=== PATIENT | female | born 1985 | race Caucasian/White ===

== ENCOUNTER 2018-04-16 13:00 | Emergency (ER) | payer OTHER, MEDICARE ==
[2018-04-16] MEDS ORDERED: Metoclopramide HCl 10 MG/2 ML VIAL ONE (13:26)
[2018-04-16] MEDS ORDERED: Famotidine/PF 20 mg/2ml Vial ONE (13:26)
[2018-04-16 14:07] LABS: #Basophils 0.1 thou/uL (0.0-0.2); #Eosinphils 0.1 thou/uL (0.0-0.7); #Lymphocytes 1.9 thou/uL (1.20-3.40); #Monocytes 0.7 thou/uL (0.11-0.59); %Basophils 1.3 % (0.0-1.0); %Eosinophils 1.2 % (0.0-10.0); %Lymphocytes 24.1 % (21.0-51.0); %Monocytes 9.1 % (0.0-10.0); %Neutrophils 64.3 % (42.0-75.0); Mean Corpuscular HGB CONC 32.7 g/dL (32.0-36.0); Mean Corpuscular Hemoglobin 28.2 pg (27.0-31.0); Mean Corpuscular Volume 86.3 fL (78.0-98.0); Mean Platelet Volume 7.8 fL (7.4-10.4); Platelet Count 239 thou/uL (130-400); RBC Distribution Width 11.9 % (11.5-14.5); Red Blood Cell (RBC) Count 4.61 mill/uL (4.20-5.40); White Blood Cell (WBC) Count 7.7 thou/uL (4.8-10.8)
[2018-04-16 14:09] LABS: BHCG - Serum Negative (NEGATIVE); Pregs Control Background? CLEAR/WHITE (CLR/WHITE); Pregs Control Bar Appear? YES (CONTROL BAR)
[2018-04-16 14:18] LABS: ALT (SGPT) 8 U/L (8-55); AST (SGOT) 9 U/L (5-34); Albumin 3.8 g/dL (3.5-5.0); Alkaline Phosphatase 66 U/L (40-150); Anion Gap 12 mmol/L (10-20); BUN (Urea Nitrogen) 10 mg/dL (7.0-18.7); Calc. Creatinine Clearance 0 mL/min (70-130); Calcium 8.6 mg/dL (7.8-10.44); Carbon Dioxide 22 mmol/L (22-29); Chloride 111 mmol/L (98-107); Estimated GFR-MDRD Greater than 90; Globulin 2.2 g/dL (2.4-3.5); Glucose 84 mg/dL (70-105); Lipase 24 U/L (8-78); Potassium 3.7 mmol/L (3.5-5.1); Sodium 141 mmol/L (136-145)
[2018-04-16] MEDS ORDERED: Lidocaine Viscous Sol 2% 15 ml UD Cup ONE (15:06)
[2018-04-16] MEDS ORDERED: Mag-Al Plus 1200 MG/1200 MG/120 MG/30 ML UDCUP ONE (15:06)
--- NOTE | 2018-04-16 15:19 | ULT ---
RIGHT UPPER QUADRANT ULTRASOUND: HISTORY: A 32-year-old female with a history of epigastric pain and left upper quadrant pain. COMPARISON: 04/27/2007. FINDINGS: The gallbladder demonstrates no evidence of gallstones, wall thickening, edema, or pericholecystic fl uid. The liver appears unremarkable. Visualized right kidney and pancreas are unremarkable. No vishnu marleny dilatation. Common bile duct is normal. IMPRESSION: Normal right upper quadrant ultrasound. No evidence of gallstones or other acute process. POS: [facility]
== END 2018-04-16 15:15 | disposition home or self-care (01) ==
LOC: SCSER 13:00
DX: R10.12 Left upper quadrant pain (principal); R10.13 Epigastric pain; F41.9 Anxiety disorder, unspecified; Z79.899 Other long term (current) drug therapy
CPT/HCPCS: 36415; 76705; 80053; 83690; 84703; 85025; 93005; 96361; 96374; 96375; J2765; S0028

== ENCOUNTER 2018-12-22 13:48 | Outpatient (CLI) | payer BC ==
--- NOTE | 2018-12-22 16:23 | RAD ---
Modified barium swallow HISTORY: Dysphagia. Feeding difficulties. FINDINGS: Exam was performed by speech pathology with multiple consistencies. Video review is availab le and demonstrates some difficulty in bolus formation with discoordination and delay in initiation of swallowing. Early spill of contrast with multiple consistencies. Mild flash penetration of liquids greater than the exam. No gisela aspiration. Considerable pooling within the valleculae sinuses with limited clearing upon secondary swallowing. No evidence of esophageal obstruction. The esophagus below the level of the hypopharynx was not evalu ated. Fluoroscopy time 2.3 minutes. Please see separate detailed report from speech pathology.
== END 2018-12-22 13:49 | disposition home or self-care (01) ==
LOC: RAD 13:48
PROVIDERS: ATTEND Otolaryngology Plastic Surgery within the Head & Neck
DX: R13.11 Dysphagia, oral phase (principal); R47.9 Unspecified speech disturbances
CPT/HCPCS: 74230

== ENCOUNTER 2019-04-16 08:41 | Outpatient (CLI) | payer BC ==
[2019-04-16] MEDS ORDERED: Magnevist 469MG/ML 20 ML VIAL ONE (11:34)
--- NOTE | 2019-04-16 13:01 | MRI ---
MRI NECK WITH AND WITHOUT CONTRAST: DATE: 04/16/2019. 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 COMPARISON: Report of prior ultrasound of neck from 04/03/2019 is available from [facility], but the ultrasound images themselves are not available. CT of neck of 06/14/2012 is available. FINDINGS: No left parotid tissue is visualized. There is no evidence of neoplastic mass in the left parotid sp antonio. The right parotid gland appears normal. The bilateral submandibular glands are atrophic, especially the left. There is no evidence of perine ural spread of tumor involving foramina ovale, cavernous sinuses, pterygopalatine fossae, or orbital apices. 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 Bone marrow signal is normal. C ervical spine is unremarkable. No cervical lymphadenopathy. The left parotid mass and the left paro tid gland, demonstrated on the 06/14/2012 CT, are no longer present. The atrophy of the submandibular glands is another change compared to the previous CT. IMPRESSION: 1. Status post left parotidectomy. 2. Atrophy of left submandibular gland, perhaps representing chronic postradiation change. 3. Otherwise, negative. No evidence of recurrent or residual malignant neoplastic tumor. POS: [facility]
== END 2019-04-16 08:42 | disposition home or self-care (01) ==
LOC: BICMRI 08:41
DX: K11.8 Other diseases of salivary glands (principal); Z85.858 Personal history of malignant neoplasm of other endocrine glands; Z98.890 Other specified postprocedural states
CPT/HCPCS: 70543; A9579